=== PATIENT | male | born 1980 | race Caucasian/White ===

== ENCOUNTER 2020-05-19 01:24 | Emergency (ER) | payer BC ==
[~2020-05-19] VITALS: Ht 182.9 cm; Wt 161.0 kg
[2020-05-19 01:36] VITALS: BP_SYST 157
--- NOTE | 2020-05-19 01:36 | NUR ---
Patient to ER bed 8 to gown for evaluation. Side rails up. Report given to Karla OLSON.
--- NOTE | 2020-05-19 01:36 | NUR ---
Patient brought in ambulatory complaining of neck pain since last night. Denies any trauma. Reports taking aleve with no relief. Pain 05/11
--- NOTE | 2020-05-19 01:40 | NUR ---
ER at bedside examining patient.
[2020-05-19] MEDS ORDERED: KETOROLAC TROMETHAMINE 60 MG/2 ML VIAL IM ONE (02:00)
[2020-05-19] MEDS ORDERED: CYCLOBENZAPRINE HCL 10 MG TABLET (FLEXERIL) PO ONE (02:00)
--- NOTE | 2020-05-19 02:15 | NUR ---
Patient transported to radiology via wheelchair, accompanied by RT.
--- NOTE | 2020-05-19 02:32 | NUR ---
Patient given written and verbal discharge instructions and verbalizes understanding. ER MD discussed with patient the results and treatment provided. Patient in stable condition. ID arm band removed. Rx of Flexeril and Toradol given. Patient educated on pain management and to follow up with PMD. Pain Scale 3/10. Opportunity for questions provided and answered. Medication side effect fact sheet provided.
[2020-05-19 02:33] VITALS: BP_SYST 157
== END 2020-05-19 02:32 | disposition home or self-care (01) ==
LOC: SED 01:24
DX: M54.2 Cervicalgia (principal)
CPT/HCPCS: 72040; 96372; 99283; J1885